=== PATIENT | male | born 1930 | race Caucasian/White ===

== ENCOUNTER 2016-07-27 15:44 | Inpatient (IN) | payer MEDICARE, OTHER ==
[~2016-07-27] VITALS: Ht 175.3 cm; Wt 71.7 kg
[2016-07-27] MEDS ORDERED: ALPRAZOLAM 0.5 MG TABLET ONE (16:00)
[2016-07-27] MEDS ORDERED: ACETAMINOPHEN 325 MG TABLET ONE (16:00)
[2016-07-27] MEDS ORDERED: OMEP20CA4 PO (16:25)
[2016-07-27] MEDS ORDERED: ROSU20TA PO (16:25)
[2016-07-27] MEDS ORDERED: SITA50TA PO (16:25)
[2016-07-27] MEDS ORDERED: MEMA10TA PO (16:25)
[2016-07-27] MEDS ORDERED: ISOS10TA8 PO (16:25)
[2016-07-27] MEDS ORDERED: BRIM5DRO2 OP (16:25)
[2016-07-27] MEDS ORDERED: TRAV2.5D6 OP (16:25)
[2016-07-27] MEDS ORDERED: RAMI5CAP PO (16:25)
[2016-07-27] MEDS ORDERED: CARV6.25 PO (16:25)
[2016-07-27] MEDS ORDERED: DILT180C66 PO (16:25)
[2016-07-27] MEDS ORDERED: WARF2TAB57 PO (16:25)
[2016-07-27] MEDS ORDERED: LORA-114 PO (16:25)
[2016-07-27] MEDS ORDERED: MAG HYDROX/AL HYDROX/SIMETH 30 ML LIQUID UDC PO PRN (18:00)
[2016-07-27] MEDS ORDERED: MAGNESIUM HYDROXIDE 30 ML LIQUID UDC PO PRN (18:00)
[2016-07-27] MEDS ORDERED: HYDROXYZINE PAMOATE 25 MG CAPSULE PO PRN (18:45)
[2016-07-27 20:10] VITALS: BP 107/59
[2016-07-27] MEDS: BLOOD SUGAR DIAGNOSTIC 1 EACH STRIP VI SCH (20:19)
[2016-07-27] MEDS ORDERED: WARFARIN SODIUM 2 MG TABLET PO ONE (20:45)
[2016-07-27] MEDS: ZOLPIDEM 5 MG TABLET PO PRN (22:25)
[2016-07-27] MEDS: ACETAMINOPHEN 325 MG TABLET PO PRN (22:26)
[2016-07-28] MEDS: BLOOD SUGAR DIAGNOSTIC 1 EACH STRIP VI SCH ×4 (06:31→20:38)
[2016-07-28 07:30] VITALS: BP 113/52
[2016-07-28] MEDS ORDERED: SITAGLIPTIN PHOSPHATE 50 MG TABLET PO SCH (11:30)
[2016-07-28] MEDS: CARVEDILOL 6.25 MG TABLET PO SCH ×2 (11:30→20:24)
[2016-07-28] MEDS ORDERED: WARFARIN SODIUM 2 MG TABLET PO SCH (11:30)
[2016-07-28] MEDS ORDERED: BRIMONIDINE-P 0.1% OPHTH DROP 5 ML DROPS EACHEYE SCH (11:30)
[2016-07-28] MEDS: ISOSORBIDE MONONITRATE 10 MG TABLET PO SCH (11:30)
[2016-07-28] MEDS: RAMIPRIL 5 MG CAPSULE PO SCH (11:30)
[2016-07-28] MEDS ORDERED: TRAVOPROST 0.004% OPHT DROP 2.5 ML BOTTLE OP SCH ×2 (11:30→21:00)
[2016-07-28] MEDS: LORATADINE 10 MG TABLET PO SCH (12:18)
[2016-07-28] MEDS: DILTIAZEM HCL CD 180 MG CAP.SR.24H PO SCH (12:18)
[2016-07-28] MEDS ORDERED: BRIMONIDINE 0.2% OPHT DROP 10 ML BOTTLE EACHEYE SCH (13:00)
[2016-07-28] MEDS: LINAGLIPTIN 5 MG TABLET PO SCH (13:35)
[2016-07-28 15:31] VITALS: BP 104/53
[2016-07-28] MEDS: BRIMONIDINE 0.2% OPHT DROP 10 ML BOTTLE EACHEYE SCH (16:12)
[2016-07-28] MEDS: WARFARIN SODIUM 2 MG TABLET PO SCH (16:31)
[2016-07-28 20:13] VITALS: BP 131/71
[2016-07-28] MEDS: LATANOPROST OPHT DROP 2.5 ML BOTTLE EACHEYE SCH (20:24)
[2016-07-28] MEDS: ATORVASTATIN 40 MG TABLET PO SCH (20:25)
[2016-07-28] MEDS: QUETIAPINE FUMARATE 25 MG TABLET PO SCH (20:25)
[2016-07-29] MEDS: ACETAMINOPHEN 325 MG TABLET PO PRN (04:21)
[2016-07-29] MEDS: PANTOPRAZOLE SODIUM 40 MG TABLET.DR PO SCH (06:17)
[2016-07-29] MEDS: BLOOD SUGAR DIAGNOSTIC 1 EACH STRIP VI SCH ×4 (06:39→20:29)
[2016-07-29 07:30] VITALS: BP 109/53
[2016-07-29] MEDS: RAMIPRIL 5 MG CAPSULE PO SCH (09:00)
[2016-07-29] MEDS: ISOSORBIDE MONONITRATE 10 MG TABLET PO SCH (09:00)
[2016-07-29] MEDS: DILTIAZEM HCL CD 180 MG CAP.SR.24H PO SCH (09:00)
[2016-07-29] MEDS: CARVEDILOL 6.25 MG TABLET PO SCH ×2 (09:00→20:07)
[2016-07-29] MEDS: LORATADINE 10 MG TABLET PO SCH (09:10)
[2016-07-29] MEDS: BRIMONIDINE 0.2% OPHT DROP 10 ML BOTTLE EACHEYE SCH ×2 (09:10→17:56)
[2016-07-29] MEDS: LINAGLIPTIN 5 MG TABLET PO SCH (09:12)
[2016-07-29] MEDS: MEMANTINE HCL 10 MG TABLET PO SCH ×2 (12:04→20:06)
[2016-07-29 15:17] VITALS: BP 118/66
[2016-07-29] MEDS: WARFARIN SODIUM 2 MG TABLET PO SCH (17:56)
[2016-07-29 20:03] VITALS: BP 116/68
[2016-07-29] MEDS: ATORVASTATIN 40 MG TABLET PO SCH (20:06)
[2016-07-29] MEDS: QUETIAPINE FUMARATE 25 MG TABLET PO SCH (20:07)
[2016-07-29] MEDS: LATANOPROST OPHT DROP 2.5 ML BOTTLE EACHEYE SCH (20:08)
[2016-07-30] MEDS: PANTOPRAZOLE SODIUM 40 MG TABLET.DR PO SCH (06:11)
[2016-07-30] MEDS: BLOOD SUGAR DIAGNOSTIC 1 EACH STRIP VI SCH ×4 (06:41→21:19)
[2016-07-30 07:30] VITALS: BP 139/72
[2016-07-30] MEDS: BRIMONIDINE 0.2% OPHT DROP 10 ML BOTTLE EACHEYE SCH ×2 (09:02→16:50)
[2016-07-30] MEDS: MEMANTINE HCL 10 MG TABLET PO SCH ×2 (09:02→21:06)
[2016-07-30] MEDS: LINAGLIPTIN 5 MG TABLET PO SCH (09:03)
[2016-07-30] MEDS: DILTIAZEM HCL CD 180 MG CAP.SR.24H PO SCH (09:03)
[2016-07-30] MEDS: LORATADINE 10 MG TABLET PO SCH (09:03)
[2016-07-30] MEDS: RAMIPRIL 5 MG CAPSULE PO SCH (09:03)
[2016-07-30] MEDS: ISOSORBIDE MONONITRATE 10 MG TABLET PO SCH (09:04)
[2016-07-30] MEDS: CARVEDILOL 6.25 MG TABLET PO SCH ×3 (09:04→22:30)
[2016-07-30] MEDS: ACETAMINOPHEN 325 MG TABLET PO PRN (11:15)
[2016-07-30 15:45] VITALS: BP 98/56
[2016-07-30] MEDS: WARFARIN SODIUM 2 MG TABLET PO SCH (16:51)
[2016-07-30] MEDS: ATORVASTATIN 40 MG TABLET PO SCH (21:06)
[2016-07-30] MEDS: QUETIAPINE FUMARATE 25 MG TABLET PO SCH (21:06)
[2016-07-30 21:15] VITALS: BP 111/60
[2016-07-30] MEDS: LATANOPROST OPHT DROP 2.5 ML BOTTLE EACHEYE SCH (21:20)
[2016-07-31] MEDS: ACETAMINOPHEN 325 MG TABLET PO PRN (04:28)
[2016-07-31] MEDS: PANTOPRAZOLE SODIUM 40 MG TABLET.DR PO SCH (06:18)
[2016-07-31] MEDS: BLOOD SUGAR DIAGNOSTIC 1 EACH STRIP VI SCH ×4 (06:25→20:39)
[2016-07-31 07:30] VITALS: BP 130/72
[2016-07-31] MEDS: ISOSORBIDE MONONITRATE 10 MG TABLET PO SCH (08:37)
[2016-07-31] MEDS: LORATADINE 10 MG TABLET PO SCH (08:38)
[2016-07-31] MEDS: CARVEDILOL 6.25 MG TABLET PO SCH ×2 (08:38→20:29)
[2016-07-31] MEDS: MEMANTINE HCL 10 MG TABLET PO SCH ×2 (08:38→20:28)
[2016-07-31] MEDS: LINAGLIPTIN 5 MG TABLET PO SCH (08:38)
[2016-07-31] MEDS: RAMIPRIL 5 MG CAPSULE PO SCH (08:38)
[2016-07-31] MEDS: DILTIAZEM HCL CD 180 MG CAP.SR.24H PO SCH (08:38)
[2016-07-31] MEDS: BRIMONIDINE 0.2% OPHT DROP 10 ML BOTTLE EACHEYE SCH ×2 (08:39→17:02)
[2016-07-31 15:12] VITALS: BP 121/65
[2016-07-31] MEDS ORDERED: WARFARIN SODIUM 1 MG TABLET PO SCH (17:00)
[2016-07-31] MEDS: CLOTRIMAZOLE/BETAMET DIPROP CREAM 15 GM TUBE TOP SCH ×2 (17:49→20:28)
[2016-07-31 20:09] VITALS: BP 118/58
[2016-07-31] MEDS: LATANOPROST OPHT DROP 2.5 ML BOTTLE EACHEYE SCH (20:27)
[2016-07-31] MEDS: QUETIAPINE FUMARATE 25 MG TABLET PO SCH (20:28)
[2016-07-31] MEDS: ATORVASTATIN 40 MG TABLET PO SCH (20:28)
[2016-07-31] MEDS ORDERED: MAGNESIUM OXIDE 400 MG TABLET PO SCH (21:00)
[2016-07-31] MEDS: ZOLPIDEM 5 MG TABLET PO PRN (22:12)
[2016-08-01] MEDS: PANTOPRAZOLE SODIUM 40 MG TABLET.DR PO SCH (06:36)
[2016-08-01] MEDS: BLOOD SUGAR DIAGNOSTIC 1 EACH STRIP VI SCH ×2 (06:37→12:42)
[2016-08-01 07:30] VITALS: BP 127/63
[2016-08-01] MEDS: CLOTRIMAZOLE/BETAMET DIPROP CREAM 15 GM TUBE TOP SCH (08:38)
[2016-08-01] MEDS: BRIMONIDINE 0.2% OPHT DROP 10 ML BOTTLE EACHEYE SCH (08:38)
[2016-08-01] MEDS: LINAGLIPTIN 5 MG TABLET PO SCH (08:39)
[2016-08-01] MEDS: ISOSORBIDE MONONITRATE 10 MG TABLET PO SCH (08:39)
[2016-08-01] MEDS: DILTIAZEM HCL CD 180 MG CAP.SR.24H PO SCH (08:39)
[2016-08-01 08:40] VITALS: BP 127/63
[2016-08-01] MEDS: LORATADINE 10 MG TABLET PO SCH (08:40)
[2016-08-01] MEDS: MEMANTINE HCL 10 MG TABLET PO SCH (08:40)
[2016-08-01] MEDS: CARVEDILOL 6.25 MG TABLET PO SCH (08:40)
[2016-08-01] MEDS: RAMIPRIL 5 MG CAPSULE PO SCH (08:40)
== END 2016-08-01 12:45 | disposition home or self-care (01) | DRG 885 ==
LOC: ER 15:48 → GPS 17:47
PROVIDERS: ADMIT Psychiatry & Neurology Psychiatry; ATTEND Psychiatry & Neurology Psychiatry
DX: F29 Unspecified psychosis not due to a substance or known physiological condition (principal); E11.9 Type 2 diabetes mellitus without complications; H40.9 Unspecified glaucoma; I10 Essential (primary) hypertension; I73.9 Peripheral vascular disease, unspecified; K21.9 Gastro-esophageal reflux disease without esophagitis; M19.90 Unspecified osteoarthritis, unspecified site; M48.00 Spinal stenosis, site unspecified; Z79.899 Other long term (current) drug therapy; Z95.1 Presence of aortocoronary bypass graft; Z85.828 Personal history of other malignant neoplasm of skin; Z90.79 Acquired absence of other genital organ(s); Z95.5 Presence of coronary angioplasty implant and graft; Z91.048 Other nonmedicinal substance allergy status; I25.10 Atherosclerotic heart disease of native coronary artery without angina pectoris; B35.6 Tinea cruris; M62.831 Muscle spasm of calf
CPT/HCPCS: 36415; 71010; 85610; 97001; A4663